=== PATIENT | male | born 2000 | race Caucasian/White ===

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

== ENCOUNTER 2022-06-26 18:42 | Emergency (ER) | payer OTHER ==
[2022-06-26 18:56] VITALS: BP 124/73; PULSE 92; RESP 18; TEMP 98; BMI 19.8
[2022-06-26] MEDS ORDERED: IBUPROFEN 600 MG TABLET (FP) PO ONE ×2 (19:30→19:32)
== END 2022-06-26 19:34 | disposition home or self-care (01) ==
LOC: JER 18:42 → JERFT 18:42
DX: H66.003 Acute suppurative otitis media without spontaneous rupture of ear drum, bilateral (principal); K04.7 Periapical abscess without sinus
CPT/HCPCS: 99283-25

== ENCOUNTER 2022-07-14 15:14 | Emergency (ER) | payer OTHER ==
[2022-07-14 15:20] VITALS: TEMP 98; BMI 20.7
[2022-07-14 16:30] LABS: BASO % 0.5 % (0-2.0); HEMATOCRIT 41.6 % (35.4-49); HEMOGLOBIN 14.2 GM/dL (11.7-16.9); LYMPH % 36.4 % (8-40); MCH 28.7 pg (25.7-33.7); MCHC 34.1 g/dl (32.0-35.9); MEAN PLT VOLUME 9.5 fl (7.5-11.1); NEUT % 55.1 % (42.8-82.8); PLATELET COUNT 202 10^3/uL (134-434); RBC 4.95 M/mm3 (4.00-5.60); RDW 14.2 % (11.9-15.9); WHITE BLOOD COUNT 5.1 K/mm3 (4.0-10.0)
[2022-07-14] MEDS ORDERED: SODIUM CHLORIDE 0.9% 500 ML INFUS.BAG IV ONE (16:47)
[2022-07-14] MEDS ORDERED: FAMOTIDINE 20 MG/50 ML IVPB 20 MG/50 ML MG IVPB ONE ×2 (16:47→17:02)
[2022-07-14] MEDS ORDERED: MAG HYDROX/AL HYDROX/SIMETH 30 ML UNIT-DOSE CUP PO ONE (16:47)
[2022-07-14] MEDS ORDERED: ACETAMINOPHEN 1000 MG/100 ML BAG IVPB ONE (16:47)
[2022-07-14 16:57] LABS: CALCIUM 9.4 mg/dL (8.5-10.1)
[2022-07-14 16:58] LABS: ALBUMIN 4.1 g/dl (3.4-5.0); MAGNESIUM 2.2 mg/dL (1.8-2.4)
[2022-07-14 17:01] LABS: CREATININE 0.8 mg/dL (0.55-1.3)
[2022-07-14] MEDS ORDERED: ACETAMINOPHEN INJECTION 100 ML IVPB ONE (17:01)
[2022-07-14] MEDS ORDERED: MAG HYDROX/AL HYDROX/SIMETH 30 ML UNIT-DOSE CUP ONE (17:01)
[2022-07-14 17:02] LABS: BILIRUBIN,TOTAL 0.5 mg/dL (0.2-1); TOT PROT 7.7 g/dl (6.4-8.2)
[2022-07-14 17:56] VITALS: BP 117/72; PULSE 80; RESP 22
[2022-07-14] MEDS ORDERED: LORazepam 2 MG TABLET PO ONE (18:05)
[2022-07-14] MEDS ORDERED: LORazepam 0.5 MG TABLET ONE (18:35)
== END 2022-07-14 19:25 | disposition home or self-care (01) ==
LOC: JER 15:14
PROC: 3E033GC Introduction of Other Therapeutic Substance into Peripheral Vein, Percutaneous Approach (ICD-10-PCS; principal; 2022-07-14)
PROC: 3E033NZ Introduction of Analgesics, Hypnotics, Sedatives into Peripheral Vein, Percutaneous Approach (ICD-10-PCS; 2022-07-14)
DX: R06.02 Shortness of breath (principal); R07.2 Precordial pain; R42 Dizziness and giddiness; R55 Syncope and collapse; Z20.822 Contact with and (suspected) exposure to COVID-19
CPT/HCPCS: 0241U-QW; 36415; 71045-TC-FY; 80053; 82962; 83735; 84443; 84484; 85025; 93005; 93010; 99285-25

== ENCOUNTER 2023-08-20 10:01 | Inpatient (IN) | payer SELFPAY ==
[2023-08-20] MEDS: morphine SULFATE 4 MG/ML VIAL IVPUSH ONE ×2 (11:10→12:20)
[2023-08-20] MEDS ORDERED: morphine SULFATE 4 MG/ML VIAL ONE ×2 (12:14→16:11)
[2023-08-20 13:13] LABS: BASO % 0.3 % (0-2.0); EOS % 1.1 % (0-4.5); HEMATOCRIT 44.2 % (35.4-49); HEMOGLOBIN 15.1 GM/dL (11.7-16.9); LYMPH % 34.7 % (8-40); MCH 29.5 pg (25.7-33.7); MCHC 34.1 g/dl (32.0-35.9); MEAN CELL VOLUME 86.4 fl (80-96); MEAN PLT VOLUME 9.8 fl (7.5-11.1); MONO % 5.2 % (3.8-10.2); NEUT % 58.7 % (42.8-82.8); PLATELET COUNT 160 10^3/uL (134-434); RBC 5.11 M/mm3 (4.00-5.60); RDW 14.3 % (11.9-15.9); WHITE BLOOD COUNT 4.6 K/mm3 (4.0-10.0)
[2023-08-20] MEDS ORDERED: KETOROLAC TROMETHAMINE 15 MG/ML VIAL ONE ×2 (13:51→20:18)
[2023-08-20] MEDS: morphine CARPU-JECT 4 MG/1 ML DISP.SYRIN IVPUSH ONE ×2 (13:55→16:18)
[2023-08-20] MEDS: KETOROLAC TROMETHAMINE 15 MG/ML VIAL IVPUSH PRN (13:55)
[2023-08-20 13:57] LABS: POTASSIUM 4.4 mmol/L (3.5-5.1)
[2023-08-20] MEDS ORDERED: ACETAMINOPHEN 500 MG TABLET (FP) ONE ×3 (13:57→23:23)
[2023-08-20 13:58] LABS: ALBUMIN 4.3 g/dl (3.4-5.0); CALCIUM 9.4 mg/dL (8.5-10.1)
[2023-08-20 13:59] LABS: BLOOD UREA NITROGEN 11.3 mg/dL (7-18)
[2023-08-20 14:01] LABS: CREATININE 0.8 mg/dL (0.55-1.3)
[2023-08-20] MEDS: ACETAMINOPHEN 500 MG TABLET (FP) PO PRN (14:01)
[2023-08-20 14:03] LABS: BILIRUBIN,TOTAL 0.4 mg/dL (0.2-1); TOT PROT 7.5 g/dl (6.4-8.2)
[2023-08-21] MEDS: morphine SULFATE 4 MG/ML VIAL IM PRN (15:21)
[2023-08-22] MEDS: ACETAMINOPHEN 500 MG TABLET (FP) PO PRN (01:37)
[2023-08-22 07:56] LABS: BASO % 0.4 % (0-2.0); EOS % 1.9 % (0-4.5); HEMATOCRIT 42.1 % (35.4-49); LYMPH % 28.3 % (8-40); MCH 29.1 pg (25.7-33.7); MCHC 33.2 g/dl (32.0-35.9); MEAN CELL VOLUME 87.5 fl (80-96); MEAN PLT VOLUME 9.7 fl (7.5-11.1); MONO % 10.4 % (3.8-10.2); PLATELET COUNT 162 10^3/uL (134-434); RBC 4.81 M/mm3 (4.00-5.60); RDW 14.3 % (11.9-15.9); WHITE BLOOD COUNT 8.2 K/mm3 (4.0-10.0)
[2023-08-22 08:17] LABS: POTASSIUM 4.1 mmol/L (3.5-5.1)
[2023-08-22 08:29] LABS: CALCIUM 9.1 mg/dL (8.5-10.1)
[2023-08-22 08:30] LABS: ALBUMIN 3.8 g/dl (3.4-5.0); BLOOD UREA NITROGEN 11.2 mg/dL (7-18)
[2023-08-22 08:33] LABS: CREATININE 0.9 mg/dL (0.55-1.3); PHOSPHOROUS 4.8 mg/dL (2.5-4.9)
[2023-08-22 08:34] LABS: BILIRUBIN,TOTAL 0.9 mg/dL (0.2-1)
[2023-08-23 07:06] LABS: HEMATOCRIT 42.5 % (35.4-49); HEMOGLOBIN 14.3 GM/dL (11.7-16.9); MCH 29.2 pg (25.7-33.7); MCHC 33.7 g/dl (32.0-35.9); MEAN CELL VOLUME 86.7 fl (80-96); MEAN PLT VOLUME 9.7 fl (7.5-11.1); PLATELET COUNT 160 10^3/uL (134-434); RBC 4.91 M/mm3 (4.00-5.60); RDW 14.3 % (11.9-15.9); WHITE BLOOD COUNT 7.7 K/mm3 (4.0-10.0)
[2023-08-23 07:32] LABS: POTASSIUM 4.3 mmol/L (3.5-5.1)
[2023-08-23 07:37] LABS: CALCIUM 9.3 mg/dL (8.5-10.1)
[2023-08-23 07:38] LABS: MAGNESIUM 2.1 mg/dL (1.8-2.4)
[2023-08-23 07:41] LABS: CREATININE 0.7 mg/dL (0.55-1.3); PHOSPHOROUS 4.3 mg/dL (2.5-4.9)
[2023-08-23] MEDS ORDERED: morphine SULFATE 4 MG/ML VIAL IVPUSH PRN (15:49)
[2023-08-24] MEDS ORDERED: ACETAMINOPHEN 500 MG TABLET (FP) PO PRN (07:47)
[2023-08-24 08:16] LABS: BASO % 0.7 % (0-2.0); EOS % 3.4 % (0-4.5); HEMATOCRIT 41.9 % (35.4-49); HEMOGLOBIN 14.4 GM/dL (11.7-16.9); LYMPH % 25.6 % (8-40); MCHC 34.4 g/dl (32.0-35.9); MEAN CELL VOLUME 87.3 fl (80-96); MEAN PLT VOLUME 9.6 fl (7.5-11.1); MONO % 9.2 % (3.8-10.2); NEUT % 61.1 % (42.8-82.8); PLATELET COUNT 158 10^3/uL (134-434); RBC 4.79 M/mm3 (4.00-5.60); RDW 14.1 % (11.9-15.9); WHITE BLOOD COUNT 8.2 K/mm3 (4.0-10.0)
[2023-08-24 08:54] LABS: ALBUMIN 3.9 g/dl (3.4-5.0); BLOOD UREA NITROGEN 14.7 mg/dL (7-18); CALCIUM 9.8 mg/dL (8.5-10.1)
[2023-08-24 08:55] LABS: MAGNESIUM 2.1 mg/dL (1.8-2.4)
[2023-08-24 08:56] LABS: BILIRUBIN,TOTAL 0.6 mg/dL (0.2-1); TOT PROT 7.4 g/dl (6.4-8.2)
[2023-08-24 08:57] LABS: CREATININE 0.8 mg/dL (0.55-1.3); PHOSPHOROUS 4.3 mg/dL (2.5-4.9)
[2023-08-24 09:09] LABS: POTASSIUM 4.6 mmol/L (3.5-5.1)
[2023-08-24] MEDS ORDERED: BUPIVACAINE HCL/PF 0.25% (2.5MG/ML) 10 ML VIAL ONE (11:12)
[2023-08-24] MEDS ORDERED: HEPARIN NA (PORCINE) 5,000 UNITS/ML 1ML VIAL ONE (11:12)
[2023-08-24] MEDS ORDERED: PROPOFOL 20 ML ONE ×2 (13:22→14:17)
[2023-08-24] MEDS ORDERED: ROCURONIUM BROMIDE 50 MG/5 ML SYRINGE ONE (13:22)
[2023-08-24] MEDS ORDERED: MIDAZOLAM HCL 2 MG/2 ML SINGLE DOSE VIAL ONE (14:17)
[2023-08-24] MEDS ORDERED: SUGAMMADEX SODIUM 200 MG/2 ML VIAL ONE (14:17)
[2023-08-24] MEDS ORDERED: FENTANYL CITRATE/PF 50 MCG/ML VIAL ONE ×4 (14:17→16:42)
[2023-08-24] MEDS ORDERED: LIDOCAINE HCL/PF 2% SDV 5ML VIAL ONE (14:19)
[2023-08-24] MEDS ORDERED: DEXAMETHASONE SOD PHOSPHATE 4 MG/1 ML VIAL ONE (14:19)
[2023-08-24] MEDS ORDERED: KETOROLAC TROMETHAMINE 30 MG/1 ML VIAL ONE (14:19)
[2023-08-24] MEDS ORDERED: ONDANSETRON 4 MG/2 ML VIAL ONE (14:19)
[2023-08-24] MEDS ORDERED: ceFAZolin SODIUM 1 GM VIAL ONE ×2 (14:46)
[2023-08-24] MEDS: BUPIVACAINE HCL/PF 0.25% (2.5MG/ML) 10 ML VIAL IJ ONE ×2 (15:02)
[2023-08-24] MEDS: ceFAZolin SODIUM 1 GM VIAL IVPB ONE (15:02)
[2023-08-24] MEDS ORDERED: SEVOFLURANE 250 ML BTL ONE (15:11)
[2023-08-24] MEDS ORDERED: ONDANSETRON 4 MG/2 ML VIAL IVPUSH PRN ×2 (16:13→16:28)
[2023-08-24] MEDS ORDERED: PROMETHAZINE HCL 25 MG/1 ML VIAL IVPB PRN (16:13)
[2023-08-24] MEDS: HYDROmorphone *PCA* 10MG/50ML DISP.SYRIN PCA SCH ×2 (17:00→18:08)
[2023-08-24] MEDS: LACTATED RINGERS SOLUTION 1,000 ML IV SCH ×2 (17:00→18:08)
[2023-08-24] MEDS ORDERED: ACETAMINOPHEN INJECTION 100 ML IVPB ONE (17:10)
[2023-08-24] MEDS: ACETAMINOPHEN 1000 MG/100 ML BAG IVPB SCH (17:15)
[2023-08-24] MEDS ORDERED: CHLORHEXIDINE GLUCONATE 4% CLEANSER FOR DECOLONIZATION TP SCH (22:00)
[2023-08-24] MEDS ORDERED: MUPIROCIN 2% TOPICAL OINTMENT FOR DECOLONIZATION NS SCH (22:00)
[2023-08-25] MEDS: KETOROLAC TROMETHAMINE 30 MG/1 ML VIAL IM ONE (02:20)
[2023-08-25] MEDS: HYDROmorphone *PCA* 10MG/50ML DISP.SYRIN PCA SCH (06:48)
[2023-08-25] MEDS: HEPARIN NA (PORCINE) 5,000 UNITS/ML 1ML VIAL SQ SCH (09:17)
[2023-08-25] MEDS: MUPIROCIN 2% TOPICAL OINTMENT FOR DECOLONIZATION NS SCH (09:18)
[2023-08-25 09:49] LABS: BASO % 0.2 % (0-2.0); HEMATOCRIT 42.3 % (35.4-49); HEMOGLOBIN 14.2 GM/dL (11.7-16.9); LYMPH % 11.5 % (8-40); MCH 29.3 pg (25.7-33.7); MCHC 33.7 g/dl (32.0-35.9); MEAN CELL VOLUME 87.1 fl (80-96); MEAN PLT VOLUME 9.2 fl (7.5-11.1); MONO % 11.4 % (3.8-10.2); NEUT % 75.9 % (42.8-82.8); PLATELET COUNT 162 10^3/uL (134-434); RBC 4.86 M/mm3 (4.00-5.60); WHITE BLOOD COUNT 9.5 K/mm3 (4.0-10.0)
[2023-08-25 10:06] LABS: POTASSIUM 4.5 mmol/L (3.5-5.1)
[2023-08-25 10:09] LABS: CALCIUM 9.1 mg/dL (8.5-10.1)
[2023-08-25 10:10] LABS: ALBUMIN 3.7 g/dl (3.4-5.0); BLOOD UREA NITROGEN 11.2 mg/dL (7-18); MAGNESIUM 1.9 mg/dL (1.8-2.4)
[2023-08-25 10:13] LABS: CREATININE 0.6 mg/dL (0.55-1.3); PHOSPHOROUS 4.3 mg/dL (2.5-4.9)
[2023-08-25 10:14] LABS: BILIRUBIN,TOTAL 0.9 mg/dL (0.2-1); TOT PROT 7.3 g/dl (6.4-8.2)
[2023-08-25 14:39] VITALS: BMI 21.3
[2023-08-25] MEDS: oxyCODONE HCL 5 MG TABLET PO SCH (15:45)
[2023-08-25] MEDS: ACETAMINOPHEN 500 MG TABLET (FP) PO SCH (18:45)
[2023-08-25] MEDS: CHLORHEXIDINE GLUCONATE 4% CLEANSER FOR DECOLONIZATION TP SCH (21:22)
[2023-08-26 08:21] LABS: BASO % 0.3 % (0-2.0); HEMATOCRIT 37.5 % (35.4-49); HEMOGLOBIN 12.9 GM/dL (11.7-16.9); LYMPH % 13.4 % (8-40); MCH 29.8 pg (25.7-33.7); MCHC 34.5 g/dl (32.0-35.9); MEAN CELL VOLUME 86.1 fl (80-96); MEAN PLT VOLUME 9.5 fl (7.5-11.1); MONO % 12.9 % (3.8-10.2); NEUT % 70.4 % (42.8-82.8); PLATELET COUNT 153 10^3/uL (134-434); RBC 4.35 M/mm3 (4.00-5.60); RDW 13.9 % (11.9-15.9); WHITE BLOOD COUNT 7.9 K/mm3 (4.0-10.0)
[2023-08-26 08:33] LABS: POTASSIUM 4.4 mmol/L (3.5-5.1)
[2023-08-26 08:52] LABS: CALCIUM 9.2 mg/dL (8.5-10.1)
[2023-08-26 08:53] LABS: ALBUMIN 3.2 g/dl (3.4-5.0)
[2023-08-26 08:55] LABS: CREATININE 0.6 mg/dL (0.55-1.3); PHOSPHOROUS 2.8 mg/dL (2.5-4.9)
[2023-08-26 08:57] LABS: BILIRUBIN,TOTAL 0.6 mg/dL (0.2-1); TOT PROT 6.4 g/dl (6.4-8.2)
[2023-08-26] MEDS ORDERED: ACETAMINOPHEN 500 MG TABLET (FP) PO SCH (09:00)
[2023-08-26] MEDS: oxyCODONE HCL 5 MG TABLET PO ONE (09:39)
[2023-08-26] MEDS: POLYETHYLENE GLYCOL (HEALTHYLAX) 3350 17 GM PACKET PO SCH (09:40)
[2023-08-26] MEDS: oxyCODONE HCL 5 MG TABLET PO SCH (13:59)
[2023-08-26] MEDS: ACETAMINOPHEN 325 MG TABLET (FP) PO SCH (14:00)
[2023-08-26] MEDS: HYDROmorphone HCl 2 MG/ML VIAL IVPUSH PRN (22:19)
[2023-08-27 07:32] LABS: HEMATOCRIT 40.8 % (35.4-49); HEMOGLOBIN 13.7 GM/dL (11.7-16.9); MCH 29.3 pg (25.7-33.7); MCHC 33.7 g/dl (32.0-35.9); MEAN CELL VOLUME 86.9 fl (80-96); PLATELET COUNT 172 10^3/uL (134-434); RBC 4.69 M/mm3 (4.00-5.60); WHITE BLOOD COUNT 7.3 K/mm3 (4.0-10.0)
[2023-08-27 07:55] LABS: CALCIUM 9.4 mg/dL (8.5-10.1)
[2023-08-27 07:59] LABS: CREATININE 0.6 mg/dL (0.55-1.3); PHOSPHOROUS 3.4 mg/dL (2.5-4.9)
[2023-08-27] MEDS: oxyCODONE HCL 5 MG TABLET PO PRN (09:22)
[2023-08-27 12:22] VITALS: BP 132/72; PULSE 82; RESP 18; TEMP 97.6
[2023-08-27] MEDS: ACETAMINOPHEN 325 MG TABLET (FP) PO PRN (13:13)
== END 2023-08-27 20:59 | disposition home or self-care (01) | DRG 120 ==
LOC: JERFT 10:01 → JER 10:01 → JERBED 21:20 → J4W 08-21 00:27 → JICU 08-24 17:44
PROVIDERS: ADMIT Internal Medicine; ATTEND Internal Medicine Pulmonary Disease
PROC: 3E0L4GC Introduction of Other Therapeutic Substance into Pleural Cavity, Percutaneous Endoscopic Approach (ICD-10-PCS; 2023-08-24)
PROC: 0W9930Z Drainage of Right Pleural Cavity with Drainage Device, Percutaneous Approach (ICD-10-PCS; 2023-08-24)
PROC: 0W9B30Z Drainage of Left Pleural Cavity with Drainage Device, Percutaneous Approach (ICD-10-PCS; 2023-08-24)
PROC: 0BBC4ZZ Excision of Right Upper Lung Lobe, Percutaneous Endoscopic Approach (ICD-10-PCS; principal; 2023-08-24 11:45)
DX: J93.83 Other pneumothorax (principal); R51.9 Headache, unspecified; G40.909 Epilepsy, unspecified, not intractable, without status epilepticus; J93.82 Other air leak; R42 Dizziness and giddiness; M54.9 Dorsalgia, unspecified; R07.89 Other chest pain
CPT/HCPCS: 36415; 71045-TC-FY; 71046-TC-FY; 80048; 80053; 82103; 83735; 84100; 85025; 85027; 86850; 86900; 86901; 87635; 88307-TC; 93005; 93010; 94760; 97116-GP; 97161-GP; 99291; J0131; J1644

== ENCOUNTER 2024-01-27 23:47 | Emergency (ER) | payer SELFPAY ==
[2024-01-28 00:04] VITALS: BP 132/71; PULSE 80; RESP 18; TEMP 97.5; BMI 18.4
[2024-01-28] MEDS ORDERED: ACETAMINOPHEN INJECTION 100 ML ONE (00:33)
[2024-01-28 00:35] LABS: VENOUS BASE EXCESS -4.6 mmol/L (-2-2); VENOUS O2 SATURATION 64.5 % (70-80); VENOUS PCO2 56.5 mmHg (38-52); VENOUS PH 7.24 (7.310-7.410)
[2024-01-28] MEDS: ACETAMINOPHEN 1000 MG/100 ML BAG IVPB ONE (00:36)
[2024-01-28 00:37] LABS: BASO % 0.6 % (0-2.0); EOS % 1.5 % (0-4.5); HEMOGLOBIN 14.6 GM/dL (11.7-16.9); LYMPH % 32.7 % (8-40); MCH 28.9 pg (25.7-33.7); MCHC 33.8 g/dl (32.0-35.9); MEAN CELL VOLUME 85.6 fl (80-96); MEAN PLT VOLUME 9.4 fl (7.5-11.1); MONO % 8.5 % (3.8-10.2); NEUT % 56.7 % (42.8-82.8); PLATELET COUNT 166 10^3/uL (134-434); RBC 5.03 M/mm3 (4.00-5.60); RDW 14.2 % (11.9-15.9); WHITE BLOOD COUNT 5.8 K/mm3 (4.0-10.0)
[2024-01-28 00:56] LABS: ALBUMIN 4.4 g/dl (3.4-5.0); CALCIUM 9.7 mg/dL (8.5-10.1)
[2024-01-28 01:00] LABS: CREATININE 0.9 mg/dL (0.55-1.3)
[2024-01-28 01:01] LABS: BILIRUBIN,TOTAL 0.4 mg/dL (0.2-1); TOT PROT 7.6 g/dl (6.4-8.2)
[2024-01-28 02:18] LABS: HIV INTERPRETATION NEGATIVE (NEGATIVE)
== END 2024-01-28 01:52 | disposition home or self-care (01) ==
LOC: JER 23:47
DX: R07.9 Chest pain, unspecified (principal); Z20.822 Contact with and (suspected) exposure to COVID-19
CPT/HCPCS: 0241U-QW; 36415; 71046-TC-FY; 80053; 82803; 84484; 85025; 86803; 87389; 93005; 93010; 99285-25